=== PATIENT | female | born 1980 | race Hispanic/Latino ===

== ENCOUNTER 2017-12-27 08:42 | Emergency (ER) | payer OTHER ==
[2017-12-27] MEDS ORDERED: NA CHLORIDE 0.9% 1,000 ML ONE (09:28)
[2017-12-27] MEDS ORDERED: FAMOTIDINE 20 MG/2 ML VIAL IV ONE (09:28)
[2017-12-27 09:30] LABS: Absolute Monocytes 0.4 K/uL (0.1-1.3); Absolute Neutrophil 3.7 K/uL (1.8-8.0); Basophils % 0.7 % (0-1.3); Eosinophils % 4.6 % (0-4.4); Hematocrit 45.4 % (36.0-45.0); Lymphocytes % 40.1 % (15.3-44.8); MCH 28.7 pg (27.0-35.0); MCV 85.9 fL (80-100); Monocytes % 5.4 % (3.3-12.3); RBC Red Blood Cell Count 5.29 M/uL (3.86-4.86)
[2017-12-27 09:49] LABS: Urine Blood 2+ (NEG); Urine Glucose NEGATIVE (NEG); Urine Protein NEGATIVE (NEG); Urine Specific Gravity >1.030 (1.005-1.030); Urine pH 5.5 (5.0-7.0)
[2017-12-27 09:51] LABS: Albumin 3.6 g/dL (3.2-5.5); Bilirubin Direct 0.1 mg/dL (0-0.2); Bilirubin Total 0.6 mg/dL (0.3-1.2); Protein, Total 7.9 g/dL (6.0-8.3)
--- NOTE | 2017-12-27 10:27 | RAD REPORT ---
EXAM DESCRIPTION: CTAbdomen Pelvis W Contrast - 12/27/2017 10:10 am CLINICAL HISTORY: Abdominal pain. COMPARISON: None. TECHNIQUE: Biphasic CT imaging of the abdomen and pelvis was performed with 100 ml non-ionic IV cont rast. All CT scans are performed using dose optimization technique as appropriate and may include automated exposure control or mA/KV adjustment according to patient size. FINDINGS: The lung bases are clear.Cholecystectomy clips. Diffuse fatty liver is present. No focal mass or biliary dilatation. The spleen, pancreas, adrenal gl ands and kidneys show no acute process. Benign appearing renal cysts are present small stone suspecte d in the right kidney measuring 3 mm without hydronephrosis. No bowel obstruction, free air, free fluid or abscess. Sigmoid diverticulosis coli is present without diverticulitis. Appendectomy. Trace pelvic free fluid. No evidence of significant lymphadenopathy. No suspicious bony findings. IMPRESSION: No acute intra-abdominal or pelvic finding. Nonobstructing 3 mm right renal stone. Mild sigmoid diverticulosis without diverticulitis.
--- NOTE | 2017-12-27 11:44 | ER ---
Nurse's Notes [facility] Name: Edwige Lopez Age: 37 yrs Sex: Female : 1980 Arrival Date: 12/27/2017 Time: 08:47 Bed 18 Private MD: out of town, doctor Diagnosis: Unspecified abdominal pain Presentation: 12/27 09:09 Presenting complaint: Patient states: started having mid upper abd pain around 0100 iw this morning, intermittent cramping, denies n/v/d, thinks she may have eaten something bad last night, rates pain 8/10. Transition of care: patient was not received from another setting of care. Onset of symptoms was December 27, 2017. Initial Sepsis Screen: Does the patient meet any 2 criteria? No. Patient's initial sepsis screen is negative. Does the patient have a suspected source of infection? No. Patient's initial sepsis screen is negative. Care prior to arrival: None. 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 - Social history:: Smoking status: Patient/guardian denies using tobacco. Screenin:13 Abuse screen: Denies threats or abuse. Denies injuries from another. Nutritional hj screening: No deficits noted. Tuberculosis screening: No symptoms or risk factors identified. Fall Risk None identified. Assessment: 09:13 General: Appears in no apparent distress. uncomfortable, Behavior is calm, cooperative, hj appropriate for age. Pain: Complains of pain in epigastric area Pain currently is 8 out of 10 on a pain scale. Quality of pain is described as crampy, sharp. Neuro: Level of Consciousness is awake, alert, obeys commands, Oriented to person, place, time, situation, Appropriate for age. Cardiovascular: Capillary refill < 3 seconds Patient's skin is warm and dry. Respiratory: Airway is patent Respiratory effort is even, unlabored, Respiratory pattern is regular, symmetrical. GI: Bowel sounds present X 4 quads. Abd is soft X 4 quads. : No signs and/or symptoms were reported regarding the genitourinary system. EENT: No signs and/or symptoms were reported regarding the EENT system. Derm: No signs and/or symptoms reported regarding the dermatologic system. Musculoskeletal: Vital Signs: 09:13 BP 116 / 72; Pulse 68; Resp 16; Temp 97.5(TE); Pulse Ox 98% on R/A; Weight 84.82 kg; iw Height 5 ft. 3 in. (160.02 cm); Pain 8/10; 09:13 Body Mass Index 33.13 (84.82 kg, 160.02 cm) iw ED Course: 08:47 Patient arrived in ED. mr 08:47 out of town, doctor is Private Physician. mr 09:03 Michel Barroso NP is [facility]. pm1 09:03 Ken Duran MD is Attending Physician. pm1 09:12 Triage completed. iw 09:13 Arm band placed on. iw 09:13 Patient has correct armband on for positive identification. Placed in gown. Bed in low hj position. Call light in reach. Side rails up X 1. 09:15 Jacob Luis, RN is Primary Nurse. hj 09:50 Inserted saline lock: 22 gauge in left antecubital area, using aseptic technique. mg2 10:[address] via wheelchair. sj 10:09 CT completed. Patient tolerated procedure well. Patient moved back from CT. sj 10:10 CT Abd/Pelvis - W/Contrast: IV contrast only In Process Unspecified. EDMS Administered Medications: 09:26 Drug: NS 0.9% 1000 ml Route: IV; Rate: 1000 ml; Site: left antecubital; hj 11:59 Follow up: IV Status: Completed infusion; IV Intake: 1000ml mg2 09:26 Drug: Pepcid 20 mg Route: IVP; Site: left antecubital; hj 11:58 Follow up: Response: No adverse reaction mg2 Intake: 11:59 IV: 1000ml; Total: 1000ml. mg2 Outcome: 11:43 Discharge ordered by . pm1 11:58 Patient left the ED. mg2 Signatures: Dispatcher [employer] EDMS Jeanna Hernandez Johanna Solorzano Abi Gallagher RN RN Jacob Luis RN RN hj Marinas, Patrick, NP VENUE COORDINATOR pm1 Matthew Hameed, RN RN mg2
--- NOTE | 2017-12-27 11:45 | EDPHYS ---
Physician Documentation [facility] Name: Edwige Lopez Age: 37 yrs Sex: Female : 1980 Arrival Date: 12/27/2017 Time: 08:47 Bed 18 Private MD: out of town, doctor ED Physician Ken Duran HPI: 12/27 10:00 This 37 yrs old Female presents to ER via Ambulatory with complaints of pm1 Abdominal Pain. 10:00 The patient presents with abdominal pain in the epigastric area. Onset: The pm1 symptoms/episode began/occurred last night. The symptoms do not radiate. Associated signs and symptoms: Pertinent negatives: nausea, vomiting, and diarrhea, chest pain, dysuria, fever, headache, shortness of breath. The symptoms are described as achy, burning. Modifying factors: The symptoms are alleviated by nothing, the symptoms are aggravated by nothing. The patient has not experienced similar symptoms in the past. The patient has not recently seen a physician. Patient feels that she might have eaten some bad food. Patient ate at a [employer] on her way here from the [place]. . 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 - Social history:: Smoking status: Patient/guardian denies using tobacco. ROS: 10:00 Constitutional: Negative for fever, chills, and weight loss, Eyes: Negative for injury, pm1 pain, redness, and discharge, ENT: Negative for injury, pain, and discharge, Neck: Negative for injury, pain, and swelling, Cardiovascular: Negative for chest pain, palpitations, and edema, Respiratory: Negative for shortness of breath, cough, wheezing, and pleuritic chest pain. 10:00 : Negative for injury, bleeding, discharge, and swelling, MS/Extremity: Negative for injury and deformity, Skin: Negative for injury, rash, and discoloration, Neuro: Negative for headache, weakness, numbness, tingling, and seizure. 10:00 Abdomen/GI: Positive for abdominal pain, of the epigastric area, Negative for nausea, vomiting, and diarrhea. 10:00 Back: Positive for flank pain, on the right. Exam: 10:00 Constitutional: This is a well developed, well nourished patient who is awake, alert, pm1 and in no acute distress. Head/Face: Normocephalic, atraumatic. Eyes: Pupils equal round and reactive to light, extra-ocular motions intact. Lids and lashes normal. Conjunctiva and sclera are non-icteric and not injected. Cornea within normal limits. Periorbital areas with no swelling, redness, or edema. ENT: Nares patent. No nasal discharge, no septal abnormalities noted. Tympanic membranes are normal and external auditory canals are clear. Oropharynx with no redness, swelling, or masses, exudates, or evidence of obstruction, uvula midline. Mucous membranes moist. Neck: Trachea midline, no thyromegaly or masses palpated, and no cervical lymphadenopathy. Supple, full range of motion without nuchal rigidity, or vertebral point tenderness. No Meningismus. Chest/axilla: Normal chest wall appearance and motion. Nontender with no deformity. No lesions are appreciated. Cardiovascular: Regular rate and rhythm with a normal S1 and S2. No gallops, murmurs, or rubs. No pulse deficits. Respiratory: Lungs have equal breath sounds bilaterally, clear to auscultation and percussion. No rales, rhonchi or wheezes noted. No increased work of breathing, no retractions or nasal flaring. Back: No spinal tenderness. No costovertebral tenderness. Full range of motion. 10:00 Skin: Warm, dry with normal turgor. Normal color with no rashes, no lesions, and no evidence of cellulitis. MS/ Extremity: Pulses equal, no cyanosis. Neurovascular intact. Full, normal range of motion. 10:00 Abdomen/GI: Inspection: abdomen appears normal, Bowel sounds: normal, Palpation: soft, mild abdominal tenderness, in the epigastric area, mass, is not appreciated, rebound tenderness, is not appreciated. 10:00 Neuro: Orientation: is normal, Motor: moves all fours, Gait: is steady, at a normal pace, without difficulty. Vital Signs: 09:13 BP 116 / 72; Pulse 68; Resp 16; Temp 97.5(TE); Pulse Ox 98% on R/A; Weight 84.82 kg; iw Height 5 ft. 3 in. (160.02 cm); Pain 8/10; 09:13 Body Mass Index 33.13 (84.82 kg, 160.02 cm) iw MDM: 09:03 Patient medically screened. pm1 11:42 Data reviewed: vital signs. Data interpreted: Pulse oximetry: on room air is 98 %. pm1 Interpretation: normal. Counseling: I had a detailed discussion with the patient and/or guardian regarding: the historical points, exam findings, and any diagnostic results supporting the discharge/admit diagnosis, lab results, radiology results, the need for outpatient follow up, to return to the emergency department if symptoms worsen or persist or if there are any questions or concerns that arise at home. 12/27 09:10 Order name: Basic Metabolic Panel; Complete Time: 09:52 pm12/27 09:10 Order name: CBC with Diff; Complete Time: :52 pm12/27 09:10 Order name: Hepatic Function; Complete Time: :52 pm12/27 09:10 Order name: Lipase; Complete Time: :52 pm12/27 09:29 Order name: Urine Dipstick--Ancillary (enter results); Complete Time: :52 mw2 12/27 09:29 Order name: Urine --Ancillary (enter results); Complete Time: :52 12/27 09:10 Order name: Urine Test (obtain specimen); Complete Time: 09:27 pm12/27 09:10 Order name: IV Saline Lock; Complete Time: 09:27 pm12/27 09:10 Order name: Labs collected and sent; Complete Time: 09:27 pm12/27 09:10 Order name: Urine Dipstick-Ancillary (obtain specimen); Complete Time: 09:27 pm12/27 09:26 Order name: CT Abd/Pelvis - W/Contrast: IV contrast only; Complete Time: 10:35 pm1 Administered Medications: : Drug: NS 0.9% 1000 ml Route: IV; Rate: 1000 ml; Site: left antecubital; hj 11:59 Follow up: IV Status: Completed infusion; IV Intake: 1000ml mg2 : Drug: Pepcid 20 mg Route: IVP; Site: left antecubital; hj 11:58 Follow up: Response: No adverse reaction mg2 Disposition: 17:18 Co-signature as Attending Physician, Ken Duran MD. rn Disposition: 12/27/17 11:43 Discharged to Home. Impression: Unspecified abdominal pain. - Condition is Stable. - Discharge Instructions: Abdominal Pain, Adult, Flank Pain. - Prescriptions for Pepcid 20 mg Oral Tablet - take 1 tablet by ORAL route every 12 hours for 10 days; 20 tablet. - Family Work Release, Medication Reconciliation Form, Thank You Letter form. - Follow up: Emergency Department; When: As needed; Reason: Worsening of condition. Follow up: Private Physician; When: 2 - 3 days; Reason: Recheck today's complaints, Continuance of care, Re-evaluation by your physician. - Problem is new. - Symptoms have improved. Signatures: Dispatcher [employer] Abi Real, RN Ken Valentin MD MD rn Joaquin, Henry, RN RN hj Marinas, Patrick, DEENA LITIGATOR pm1 Matthew Hameed RN RN mg2
== END 2017-12-27 11:58 | disposition home or self-care (01) ==
LOC: ER 08:42
DX: R10.13 Epigastric pain (principal); Z88.5 Allergy status to narcotic agent
CPT/HCPCS: 36415; 74177; 80048; 80076; 81003; 81025; 83690; 85025; J7030; Q9967; 96361; 96374; 99284

== ENCOUNTER 2018-08-30 14:46 | Emergency (ER) | payer OTHER ==
--- OUTSIDE RECORDS SUMMARY | 2018-08-30 14:48 | XMS REPORT ---
:1980 Author Organization [facility] Address [address] [place] [address] Care Team Providers Name Role Phone Unavailable Unavailable Unavailable Payers Payer Name Policy Type Policy Number Effective Date Expiration Date Problems This patient has no known problems. Allergies, Adverse Reactions, Alerts Allergy Name Allergy Status Severity Reaction(s) Onset Inactive Treating Comments Type Date Date Clinician hydrocodone DA Active 2016-09 00:00: 00 acetaminophen DA Active 2016-09 00:00: 00 Medications This patient has no known medications.
--- NOTE | 2018-08-30 15:47 | EDPHYS ---
Physician Documentation [facility] Name: Edwige Lopez Age: 38 yrs Sex: Female : 1980 Arrival Date: 08/30/2018 Time: 14:51 Bed 11 Private MD: ED Physician Thomas Milian HPI: 08/30 15:44 This 38 yrs old Female presents to ER via Ambulatory with complaints of Flu kb Symptoms. 15:45 The patient or guardian reports cough, that is intermittent, described as moderate, kb with no sputum, flu symptoms, arthralgias, low-grade fever, myalgias. Onset: The symptoms/episode began/occurred yesterday. Severity of symptoms: At their worst the symptoms were moderate, in the emergency department the symptoms are unchanged. Modifying factors: The symptoms are alleviated by nothing, the symptoms are aggravated by nothing. Associated signs and symptoms: Pertinent positives: earache, fever, rhinorrhea, sore throat, Pertinent negatives: chest pain, diarrhea, nausea, vomiting. The patient has not experienced similar symptoms in the past. The patient has not recently seen a physician. Pt reports cough, body aches, bilateral ear pain, body aches, sore throat and congestion since yesterday. 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 - Social history:: Smoking status: Patient/guardian denies using tobacco, Patient/guardian denies using alcohol. - Ebola Screening: : Patient negative for fever greater than or equal to 101.5 degrees Fahrenheit, and additional compatible Ebola Virus Disease symptoms Patient denies exposure to infectious person Patient denies travel to an Ebola-affected area in the 21 days before illness onset. ROS: 15:44 Cardiovascular: Negative for chest pain, palpitations, and edema, Abdomen/GI: Negative kb for abdominal pain, nausea, vomiting, diarrhea, and constipation, Back: Negative for injury and pain, : Negative for injury, bleeding, discharge, and swelling, MS/Extremity: Negative for injury and deformity, Skin: Negative for injury, rash, and discoloration, Neuro: Negative for headache, weakness, numbness, tingling, and seizure. 15:44 Constitutional: Positive for body aches, chills, fatigue, fever, malaise, Negative for poor PO intake, weight loss. 15:44 ENT: Positive for ear pain, sore throat. 15:44 Respiratory: Positive for cough, Negative for dyspnea on exertion, hemoptysis, orthopnea, pleurisy, shortness of breath, sputum production, wheezing. Exam: 15:44 Constitutional: This is a well developed, well nourished patient who is awake, alert, kb and in no acute distress. Head/Face: Normocephalic, atraumatic. ENT: Nares patent. No nasal discharge, no septal abnormalities noted. Tympanic membranes are normal and external auditory canals are clear. Oropharynx with no redness, swelling, or masses, exudates, or evidence of obstruction, uvula midline. Mucous membranes moist. Neck: Trachea midline, no thyromegaly or masses palpated, and no cervical lymphadenopathy. Supple, full range of motion without nuchal rigidity, or vertebral point tenderness. No Meningismus. Chest/axilla: Normal chest wall appearance and motion. Nontender with no deformity. No lesions are appreciated. Cardiovascular: Regular rate and rhythm with a normal S1 and S2. No gallops, murmurs, or rubs. Normal PMI, no JVD. No pulse deficits. Respiratory: Lungs have equal breath sounds bilaterally, clear to auscultation and percussion. No rales, rhonchi or wheezes noted. No increased work of breathing, no retractions or nasal flaring. Abdomen/GI: Soft, non-tender, with normal bowel sounds. No distension or tympany. No guarding or rebound. No evidence of tenderness throughout. Skin: Warm, dry with normal turgor. Normal color with no rashes, no lesions, and no evidence of cellulitis. MS/ Extremity: Pulses equal, no cyanosis. Neurovascular intact. Full, normal range of motion. Neuro: Awake and alert, GCS 15, oriented to person, place, time, and situation. Cranial nerves II-XII grossly intact. Motor strength 5/5 in all extremities. Sensory grossly intact. Cerebellar exam normal. Normal gait. Vital Signs: 14:59 BP 107 / 57; Pulse 115; Resp 18; Temp 100.6(O); Pulse Ox 99% on R/A; Weight 85.28 kg; hj Height 5 ft. 2 in. (157.48 cm); Pain 10/10; 14:59 Body Mass Index 34.39 (85.28 kg, 157.48 cm) hj MDM: 15:32 Patient medically screened. kb 15:43 Data reviewed: vital signs, nurses notes. Data interpreted: Pulse oximetry: on room air kb is 99 %. Interpretation: normal. Counseling: I had a detailed discussion with the patient and/or guardian regarding: the historical points, exam findings, and any diagnostic results supporting the discharge/admit diagnosis, lab results, the need for outpatient follow up, a family practitioner, to return to the emergency department if symptoms worsen or persist or if there are any questions or concerns that arise at home. 08/30 15:01 Order name: Flu; Complete Time: 15:30 08/30 15:01 Order name: Strep; Complete Time: 15:30 08/30 15:28 Order name: Throat Culture EDMA Administered Medications: 15:41 Drug: Ibuprofen 800 mg Route: PO; Disposition: 16:20 Co-signature as Attending Physician, Thomas Milian MD I agree with the assessment and kdr plan of care. Disposition: 08/30/18 15:47 Discharged to Home. Impression: Influenza due to identified novel influenza A virus. - Condition is Stable. - Discharge Instructions: Influenza, Adult, [id number]. - Prescriptions for Tamiflu 75 mg Oral Capsule - take 1 capsule by ORAL route every 12 hours for 5 days; 10 capsule. - Medication Reconciliation Form, Thank You Letter, Antibiotic Education, Prescription Opioid Use form. - Follow up: Emergency Department; When: As needed; Reason: Worsening of condition. Follow up: Private Physician; When: 2 - 3 days; Reason: Recheck today's complaints, Continuance of care, Re-evaluation by your physician. Signatures: Dispatcher [employer] EDMA Crystal Adams, Thomas Thomas MD MD [facility] Abi Gallagher RN RN Jacob Luis RN RN Corrections: (The following items were deleted from the chart) 16:05 15:47 08/30/2018 15:47 Discharged to Home. Impression: Influenza due to identified iw novel influenza A virus. Condition is Stable. Forms are Medication Reconciliation Form, Thank You Letter, Antibiotic Education, Prescription Opioid Use. Follow up: Emergency Department; When: As needed; Reason: Worsening of condition. Follow up: Private Physician; When: 2 - 3 days; Reason: Recheck today's complaints, Continuance of care, Re-evaluation by your physician. kb
--- NOTE | 2018-08-30 15:47 | ER ---
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 Transition of care: patient was not received from another setting of care. Onset of symptoms was August 30, 2018. Risk Assessment: Do you want to hurt yourself or someone else? Patient reports no desire to harm self or others. Initial Sepsis Screen: Does the patient meet any 2 criteria? No. Patient's initial sepsis screen is negative. Does the patient have a suspected source of infection? No. Patient's initial sepsis screen is negative. Care prior to arrival: None. 14:56 Method Of Arrival: Ambulatory 14:56 Acuity: [place] 4 Triage Assessment: 14:58 General: Appears in no apparent distress. uncomfortable, Behavior is calm, cooperative, hj appropriate for age. Pain: Complains of pain in throat. 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 - Social history:: Smoking status: Patient/guardian denies using tobacco, Patient/guardian denies using alcohol. - Ebola Screening: : Patient negative for fever greater than or equal to 101.5 degrees Fahrenheit, and additional compatible Ebola Virus Disease symptoms Patient denies exposure to infectious person Patient denies travel to an Ebola-affected area in the 21 days before illness onset. Screenin:58 Abuse screen: Denies threats or abuse. Denies injuries from another. Nutritional hj screening: No deficits noted. Tuberculosis screening: No symptoms or risk factors identified. Fall Risk None identified. Vital Signs: 14:59 BP 107 / 57; Pulse 115; Resp 18; Temp 100.6(O); Pulse Ox 99% on R/A; Weight 85.28 kg; hj Height 5 ft. 2 in. (157.48 cm); Pain 10/10; 14:59 Body Mass Index 34.39 (85.28 kg, 157.48 cm) hj ED Course: 14:51 Patient arrived in ED. mr 14:58 Triage completed. hj 14:59 Arm band placed on right wrist. hj 15:00 Patient has correct armband on for positive identification. Placed in gown. Bed in low hj position. Call light in reach. Side rails up X 1. Adult w/ patient. 15:08 Crystal Adams FNP-C is PHCP. kb 15:08 Thomas Milian MD is Attending Physician. kb 15:24 Flu Sent. hj 15:24 Strep Sent. hj 15:30 Lion Ramirez, RN is Primary Nurse. bp Administered Medications: 15:41 Drug: Ibuprofen 800 mg Route: PO; iw Outcome: 15:47 Discharge ordered by . kb 16:05 Patient left the ED. 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 hj 15:01 14:59 Pulse 115bpm; Resp 18bpm; Pulse Ox 99% RA; Temp 100.6F Oral; 85.28 kg; Height 5 hj ft. 2 in.; BMI: 34.3; Pain 10/10; hj
[2018-08-30] MEDS ORDERED: IBUPROFEN 400 MG TAB ONE (15:49)
== END 2018-08-30 16:05 | disposition home or self-care (01) ==
LOC: ER 14:46
DX: J10.1 Influenza due to other identified influenza virus with other respiratory manifestations (principal)
CPT/HCPCS: 87070; 87081; 87804; 99283